=== PATIENT | female | born 1985 | race Caucasian/White ===

== ENCOUNTER 2021-09-17 21:13 | Emergency (ER) | payer BC, OTHER ==
[~2021-09-17] VITALS: Ht 167.6 cm; Wt 89.8 kg
[2021-09-17] MEDS ORDERED: VENTOLIN HFA18 GM INH (22:52)
[2021-09-17] MEDS ORDERED: AZITHROMYCIN250 MG PO (22:52)
[2021-09-17] MEDS ORDERED: PREDNISONE20 MG PO (22:52)
== END 2021-09-17 22:57 | disposition home or self-care (01) ==
LOC: ER 21:19
DX: R05.9 Cough, unspecified (principal); J40 Bronchitis, not specified as acute or chronic; R50.9 Fever, unspecified
CPT/HCPCS: 71045; 99283; U0002

== ENCOUNTER 2022-08-23 18:27 | Emergency (ER) | payer BC, OTHER ==
[~2022-08-23] VITALS: Ht 167.6 cm; Wt 89.8 kg
[~2022-08-23 18:27] MED LIST: AZITHROMYCIN250 MG PO; PREDNISONE20 MG PO; VENTOLIN HFA18 GM INH
[2022-08-23] MEDS ORDERED: ONDANSETRON HCL INJ 2MG/ML 2ML 2 MG/ML VIAL IV STA (19:32)
[2022-08-23] MEDS ORDERED: SODIUM CHLORIDE 0.9% 1000ML 1,000 ML IV ONE (19:45)
[2022-08-23 19:47] LABS: BASOPHILS # (AUTO) 0.1 (0.0-0.1); EOSINOPHILS # (AUTO) 0.4 (0.0-0.4); EOSINOPHILS % 2.5 % (0.0-6.0); HEMATOCRIT 48.1 % (34.2-44.1); LYMPHOCYTES # (AUTO) 3.8 (1.0-3.2); LYMPHOCYTES % 26.7 % (18.0-39.1); MEAN CORPUSCULAR HEMOGLOBIN 31.4 pg (28-32); MEAN CORPUSCULAR HGB CONC 33.3 g/dL (31-35); MEAN CORPUSCULAR VOLUME 94.3 fL (81-99); MONOCYTES # (AUTO) 0.8 (0.2-0.8); MONOCYTES % 5.8 % (4.4-11.3); NEUTROPHILS # (AUTO) 9.1 (2.1-6.9); NEUTROPHILS % 63.6 % (38.7-80.0); PLATELET COUNT 373 x10e3/uL (140-360); RED CELL DISTRIBUTION WIDTH 12.1 % (11.7-14.4)
[2022-08-23] MEDS ORDERED: SODIUM CHLORIDE 0.9% 1000ML 1,000 ML ONE (19:47)
[2022-08-23 20:05] LABS: ALBUMIN 4.2 g/dL (3.5-5.0); ALBUMIN/GLOBULIN RATIO 1.3 (0.8-2.0); ANION GAP 14.7 mmol/L (8-16); CALCIUM 9.3 mg/dL (8.4-10.2); CREATININE, SERUM 0.71 mg/dL (0.57-1.11); POTASSIUM 3.7 mmol/L (3.5-5.1)
[2022-08-23] MEDS ORDERED: IOPAMIDOL 370 MG/ML 100 ML INFUS..BTL INJ ONE (20:39)
[2022-08-23] MEDS ORDERED: ONDANSETRON ODT4 MG PO (21:57)
[2022-08-23] MEDS ORDERED: AZITHROMYCIN250 MG PO (21:57)
[2022-08-23 22:11] VITALS: BP 158/89
== END 2022-08-23 22:18 | disposition home or self-care (01) ==
LOC: ER 18:38
DX: R10.32 Left lower quadrant pain (principal); R19.7 Diarrhea, unspecified; R50.9 Fever, unspecified; K80.20 Calculus of gallbladder without cholecystitis without obstruction; R11.2 Nausea with vomiting, unspecified; K76.0 Fatty (change of) liver, not elsewhere classified
CPT/HCPCS: 36415; 74177; 80053; 84702; 85025; 99284; J2405; J7030; Q9967

== ENCOUNTER 2024-11-05 09:21 | Emergency (ER) | payer OTHER ==
[~2024-11-05] VITALS: Ht 165.1 cm; Wt 103.9 kg
[~2024-11-05 09:21] MED LIST changes: +ONDANSETRON ODT4 MG PO
[2024-11-05] MEDS ORDERED: AMOXICILLIN500 MG PO (09:58)
[2024-11-05 10:45] VITALS: PULSE 71; RESP 16; TEMP 98.7; O2SAT 99
[2024-11-05] MEDS ORDERED: KETOROLAC TROME10 MG PO (20:12)
[2024-11-05] MEDS ORDERED: AUGMENTIN 500-1 EACH PO (20:17)
== END 2024-11-05 10:44 | disposition home or self-care (01) ==
LOC: ER 09:57
DX: H66.91 Otitis media, unspecified, right ear (principal); E11.9 Type 2 diabetes mellitus without complications; E78.5 Hyperlipidemia, unspecified; F41.9 Anxiety disorder, unspecified; F32.A Depression, unspecified; F17.210 Nicotine dependence, cigarettes, uncomplicated
CPT/HCPCS: 99283

== ENCOUNTER 2024-11-05 19:42 | Emergency (ER) | payer OTHER ==
[~2024-11-05] VITALS: Ht 165.1 cm; Wt 103.9 kg
[~2024-11-05 19:42] MED LIST changes: +AMOXICILLIN500 MG PO
[2024-11-05 20:05] VITALS: PULSE 93; RESP 16; TEMP 98.9; O2SAT 97
[2024-11-05] MEDS ORDERED: TRAMADOL HCL 50 MG TAB ONE (20:10)
[2024-11-05] MEDS ORDERED: KETOROLAC TROME10 MG PO (20:12)
[2024-11-05] MEDS: LIDOCAINE HCL 1% LOCAL INJ 20 ML VIAL INJ STA (20:15)
[2024-11-05] MEDS ORDERED: AUGMENTIN 500-1 EACH PO (20:17)
[2024-11-05] MEDS: TRAMADOL HCL 50 MG TAB PO ONE (20:18)
== END 2024-11-05 20:19 | disposition home or self-care (01) ==
LOC: ER 19:50
DX: H92.01 Otalgia, right ear (principal); E11.9 Type 2 diabetes mellitus without complications; E78.5 Hyperlipidemia, unspecified; F41.9 Anxiety disorder, unspecified; F32.A Depression, unspecified
CPT/HCPCS: 99283; J2003

== ENCOUNTER 2025-04-26 23:54 | Emergency (ER) | payer OTHER ==
[~2025-04-26] VITALS: Ht 167.6 cm; Wt 95.3 kg
[~2025-04-26 23:54] MED LIST changes: +AUGMENTIN 500-1 EACH PO; +KETOROLAC TROME10 MG PO
[2025-04-27] VITALS: PULSE 104; RESP 17; TEMP 98.3
[2025-04-27 01:28] VITALS: BP 134/87; PULSE 99; RESP 17; TEMP 98.5; O2SAT 98
== END 2025-04-27 01:30 | disposition home or self-care (01) ==
LOC: ER 04-27 01:03
DX: R11.2 Nausea with vomiting, unspecified (principal); R07.89 Other chest pain; T40.715A Adverse effect of cannabis, initial encounter; E11.9 Type 2 diabetes mellitus without complications; E78.5 Hyperlipidemia, unspecified; F41.9 Anxiety disorder, unspecified; F32.A Depression, unspecified; F17.210 Nicotine dependence, cigarettes, uncomplicated
CPT/HCPCS: 93005; 99283